=== PATIENT | female | born 2005 | race American Indian/Alaskan Native ===

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

== ENCOUNTER → 2025-10-07 | Outpatient (CLI) | payer OTHER ==
[~2025-10-07] MED LIST changes: +AMPDEX5 PO
== END ==
LOC: LAB 18:11 → LAB SHORT 18:11
DX: J03.90 Acute tonsillitis, unspecified (principal)
CPT/HCPCS: 87081